=== PATIENT | female | born 1935 | race American Indian/Alaskan Native ===

== ENCOUNTER 2022-05-14 13:27 | Emergency (ER) | payer MEDICARE ==
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
[2022-05-14 14:29] VITALS: BP 159/81
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
== END 2022-05-14 16:04 | disposition home or self-care (01) ==
LOC: ED 13:27
DX: S13.4XXA Sprain of ligaments of cervical spine, initial encounter (principal); S59.902A Unspecified injury of left elbow, initial encounter; V89.2XXA Person injured in unspecified motor-vehicle accident, traffic, initial encounter; Y93.89 Activity, other specified; Y92.89 Other specified places as the place of occurrence of the external cause; Y99.8 Other external cause status
CPT/HCPCS: 72040; 99283